=== PATIENT | male | born 1980 | race Caucasian/White ===

== ENCOUNTER 2016-07-06 10:08 | Emergency (ER) | payer OTHER ==
[2016-07-06 10:20] VITALS: BP 134/79
[2016-07-06] MEDS ORDERED: Ketorolac INJ* 60 MG/2 ML VIAL IM ONE (10:47)
--- NOTE | 2016-07-06 11:09 | ED ---
Back Pain - HPI Summary HPI Summary: 35 y/o male presents to the urgents care c/o lower back pain for the past 4 days whil;e he was squatting down to pick ferns. He states a shooting pain went down his left leg. Patient reports he has been taking Flexeril and Naproxen to aleviate symptoms, but the pain persist. Pain today is 8/10. He denies Hx of back pain, or urinary symptoms. He also denies N/V or saddle anesthesia. Patient denies numbness or tingling over lower extremities.. - History of Current Complaint Chief Complaint: UCBackPain Stated Complaint: BACK PAIN Time Seen by Provider: 07/06/16 10:21 Hx Obtained From: Patient Onset/Duration: Sudden Onset, Lasting Days, Still Present Onset/Duration: Started Days Ago Back Pain Location: Radiates To - to the left leg Pain Intensity: 8 Pain Scale Used: 0-10 Numeric Character: Spasmodic Aggravating Symptom(s): Movement, Lifting, Bending Associated Signs And Symptoms: Positive: Pain with Weight Bearing. Negative: Fever, Weakness, Numbness, Tingling, Flank Pain - Risk Factors TAD Risk Factors: Negative Cauda Equina Risk Factors: Negative - Allergies/Home Medications Allergies/Adverse Reactions: Allergies Allergy/AdvReac Type Severity Reaction Status Date / Time Sulfites Allergy "Throbbing Verified 07/06/16 10:20 down my whole right side." PMH/Surg Hx/FS Hx/Imm Hx Endocrine/Hematology History: Denies: Hx Anticoagulant Therapy, Hx Diabetes, Hx Thyroid Disease Cardiovascular History: Denies: Hx Congestive Heart Failure, Hx Deep Vein Thrombosis, Hx Hypertension , Hx Myocardial Infarction, Hx Pacemaker/ICD Respiratory History: Denies: Hx Asthma, Hx Chronic Obstructive Pulmonary Disease (COPD), Hx Lung Cancer, Hx Pneumonia, Hx Pulmonary Embolism GI History: Denies: Hx Gall Bladder Disease, Hx Gastrointestinal Bleed, Hx Ulcer, Hx Urosepsis History: Denies: Hx Kidney Stones, Hx Renal Disease Neurological History: Denies: Hx Dementia, Hx Migraine, Hx Seizures, Hx Transient Ischemic Attacks (TIA) Infectious Disease History: No Infectious Disease History: Denies: Traveled Outside the [place] in Last 30 Days - Family History Known Family History: Positive: None Negative: Hypertension, Diabetes - Social History Occupation: Employed Full-time - [employer] contractor Alcohol Use: Occasionally Substance Use Type: Reports: None Smoking Status (MU): Heavy Every Day Tobacco Smoker Type: Cigarettes Amount Used/How Often: 1/4 - 1/2 PPD Have You Smoked in the Last Year: Yes Cessation Counseling: Patient Advised to Stop Review of Systems Constitutional: Negative Negative: Fever Eyes: Negative ENT: Negative Cardiovascular: Negative Respiratory: Negative Gastrointestinal: Negative Negative: Abdominal Pain, Vomiting, Diarrhea, Nausea Genitourinary: Negative Negative: burning, dysuria Positive: Other - Positive lower back pain radiating to the left side Skin: Negative Neurological: Negative Psychological: Normal All Other Systems Reviewed And Are Negative: Yes Physical Exam Triage Information Reviewed: Yes Vital Signs On Initial Exam: Initial Vitals Temp Pulse Resp BP Pulse Ox 97.9 F 84 18 134/79 99 07/06/16 10:14 07/06/16 10:14 07/06/16 10:14 07/06/16 10:14 07/06/16 10:14 Vital Signs Reviewed: Yes Appearance: Positive: Well-Appearing, No Pain Distress, Well-Nourished Skin: Positive: Warm, Dry Head/Face: Positive: Normal Head/Face Inspection ENT: Positive: Pharynx normal. Negative: Pharyngeal erythema, Nasal congestion Neck: Positive: Nontender Respiratory/Lung Sounds: Positive: Clear to Auscultation, Breath Sounds Present Cardiovascular: Positive: Normal, RRR, S1, S2 Abdomen Description: Positive: Nontender, No Organomegaly. Negative: CVA Tenderness (R), CVA Tenderness (L) Bowel Sounds: Positive: Present Musculoskeletal: Positive: Strength/ROM Intact - positive decrease flexion and extension of lower back, Other - Negative leg raise test. Negative paresthesias over the lower extremities. Positive pulses and sensation wih good capillary refill. No tenderness on deep palpation over the paraspinal muscles at the lower back. Neurological: Positive: Normal Psychiatric: Positive: Normal - Henry Coma Scale Glascow Coma Scale Comments: 15 Diagnostics - Vital Signs Vital Signs Temp Pulse Resp BP Pulse Ox 07/06/16 10:14 97.9 F 84 18 134/79 99 - Laboratory Lab Statement: Any lab studies that have been ordered have been reviewed, and results considered in the medical decision making process. Back Pain Course/Dx - Diagnoses Differential Diagnosis/HQI/PQRI: Positive: Cauda Equina Syndrome, Fracture, Renal Colic, Strain, Sprain Provider Diagnoses: Lower back pain Discharge - Discharge Plan Condition: Stable Disposition: HOME Prescriptions: HYDROcodone/ACETAMIN 5-325 MG* [[place] 5-325 TAB*] 1 tab PO Q8H PRN #9 tab MDD 4 tabs PRN Reason: Pain Patient Education Materials: Acute Low Back Pain (ED) Referrals: [facility] [place] [facility] [Outside] No Primary Care Phys,NOPCP [Primary Care Provider] - Additional Instructions: Take madications as indicated and advised to follow up with PCP to call up and set up for an appt. Please acquire a back support which will help you for activities.
== END 2016-07-06 11:19 | disposition home or self-care (01) ==
LOC: UCCORT 10:08
DX: M54.5 Low back pain (principal); F17.210 Nicotine dependence, cigarettes, uncomplicated
CPT/HCPCS: 96372; 99212; G0463; J1885

== ENCOUNTER 2018-03-25 08:00 | Emergency (ER) | payer OTHER ==
[2018-03-25 08:27] VITALS: BP 123/86
--- NOTE | 2018-03-25 08:37 | UC ---
UC General HPI - HPI Summary HPI Summary: 2-3 day hx with pt c/o fatigue, bodyaches and subjective fever and chills. no thirsty as well. 2 coworkers have the flu. no hx DM. - History of Current Complaint Chief Complaint: UCGeneralIllness Stated Complaint: FATIGUE Time Seen by Provider: 03/25/18 08:25 Hx Obtained From: Patient Timing: Constant Pain Intensity: 0 Associated Signs & Symptoms: Positive: Fever. Negative: Abdominal Pain, Cough, Diarrhea, Dysuria, SOB, Vomiting - Allergy/Home Medications Allergies/Adverse Reactions: Allergies Allergy/AdvReac Type Severity Reaction Status Date / Time sulfite Allergy Right Body Verified 03/25/18 08:24 Throbbing Pain Home Medications: Home Medications NK [No Home Medications Reported] 03/25/18 [History Confirmed 03/25/18] PMH/Surg Hx/FS Hx/Imm Hx Previously Healthy: Yes Other History Of: Negative For: HIV, Hepatitis B, Hepatitis C, Anticoagulant Therapy - Surgical History Surgical History: None - Family History Known Family History: Positive: None Negative: Hypertension, Diabetes - Social History Occupation: Employed Full-time Alcohol Use: Weekly Substance Use Type: None Smoking Status (MU): Heavy Every Day Tobacco Smoker Type: Cigarettes Amount Used/How Often: 1/2 PPD Length of Time of Smoking/Using Tobacco: Since Age 15 Have You Smoked in the Last Year: Yes Household Exposure Type: Cigarettes - Immunization History Vaccination Up to Date: Yes Review of Systems All Other Systems Reviewed And Are Negative: Yes Constitutional: Positive: Fever, Chills, Fatigue Skin: Positive: Negative Eyes: Positive: Negative ENT: Positive: Negative Respiratory: Positive: Negative Cardiovascular: Positive: Negative Gastrointestinal: Positive: Negative Genitourinary: Positive: Negative Motor: Positive: Negative Neurovascular: Positive: Negative Musculoskeletal: Positive: Myalgia Neurological: Positive: Negative Psychological: Positive: Negative Is Patient Immunocompromised?: No Physical Exam Triage Information Reviewed: Yes Appearance: Well-Appearing Vital Signs: Initial Vital Signs Temp 98.3 F 03/25/18 08:24 Pulse 79 03/25/18 08:24 Resp 18 03/25/18 08:24 BP 123/86 03/25/18 08:24 Pulse Ox 100 03/25/18 08:24 Vital Signs Reviewed: Yes Eyes: Positive: Conjunctiva Clear ENT: Positive: Pharynx normal, TMs normal. Negative: Nasal congestion, Nasal drainage Neck: Positive: Supple, Nontender, No Lymphadenopathy Respiratory: Positive: Lungs clear, Normal breath sounds, No respiratory distress Cardiovascular: Positive: RRR, No Murmur Abdomen Description: Positive: Nontender, No Organomegaly, Soft Bowel Sounds: Positive: Present Musculoskeletal: Positive: ROM Intact Neurological: Positive: Alert Psychological: Positive: Age Appropriate Behavior Skin Exam: Normal Skin: Negative: Rashes Diagnostics - Laboratory Diagnostic Studies Completed/Ordered: u/a=trace blood only, no glucose. Rapid flu=neg. Course/Dx - Course Course Of Treatment: no indication for antibiotics - Differential Dx - Multi-Symptom Differential Diagnoses: Other - viral syndrom/influeza, hyperglucemia. doubt anemia or throid disorder. - Diagnoses Provider Diagnosis: Viral syndrome Discharge - Sign-Out/Discharge Documenting (check all that apply): Patient Departure All imaging exams completed and their final reports reviewed: No Studies - Discharge Plan Condition: Stable Disposition: HOME Patient Education Materials: Viral Syndrome (ED) Forms: *Work Release Referrals: Eloy Wolfe MD [Primary Care Provider] - 5 Days Additional Instructions: FOLLOW UP PCP IF NOT BETTER IN 5 DAYS OR SOONER IF WORSE. - Billing Disposition and Condition Condition: STABLE Disposition: Home
[2018-03-25 08:45] LABS: Influenza A Molecular NEGATIVE (Negative); Influenza B Molecular NEGATIVE (Negative)
== END 2018-03-25 08:53 | disposition home or self-care (01) ==
LOC: UCCORT 08:00
DX: B34.9 Viral infection, unspecified (principal); R53.83 Other fatigue; M79.10 Myalgia, unspecified site; F17.210 Nicotine dependence, cigarettes, uncomplicated; Z91.09 Other allergy status, other than to drugs and biological substances
CPT/HCPCS: 81003; 99211; G0463

== ENCOUNTER 2018-11-04 11:18 | Emergency (ER) | payer OTHER ==
[2018-11-04 12:19] VITALS: BP 116/80
--- NOTE | 2018-11-04 12:22 | UC ---
Respiratory Complaint HPI - HPI Summary HPI Summary: 38-year-old male who states that he's had fever, chills and productive cough over the weekend. 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 - History of Current Complaint Chief Complaint: UCRespiratory Stated Complaint: COUGH,CHEST CONGESTION Time Seen by Provider: 11/04/18 12:21 Hx Obtained From: Patient Onset/Duration: Gradual Onset Timing: Intermittent Episodes Severity Initially: Mild Severity Currently: Mild Pain Intensity: 7 Character: Cough: Productive - Patient states he also feels like his chest is burning when he coughs. He denies any chest pressure and no radiation of any pain and denies chest pain. Aggravating Factors: Other - Patient has been using lathe and plaster over the past month, without using protective masks. Alleviating Factors: Nothing Associated Signs And Symptoms: Positive: Fever, Chills - Allergies/Home Medications Allergies/Adverse Reactions: Allergies Allergy/AdvReac Type Severity Reaction Status Date / Time sulfite Allergy Right Body Verified 11/04/18 12:20 Throbbing Pain Home Medications: Home Medications Acetaminophen [Acetaminophen Extra Strength] 1,000 mg PO Q4H PRN 11/04/18 [ History Confirmed 11/04/18] Ibuprofen TAB* [Advil TAB*] 600 mg PO Q6H PRN 11/04/18 [History Confirmed ] PMH/Surg Hx/FS Hx/Imm Hx Previously Healthy: Yes Other History Of: Negative For: HIV, Hepatitis B, Hepatitis C, Anticoagulant Therapy - Surgical History Surgical History: None - Family History Known Family History: Positive: None Negative: Hypertension, Diabetes - Social History Occupation: Employed Full-time Alcohol Use: Weekly Substance Use Type: None Smoking Status (MU): Heavy Every Day Tobacco Smoker Type: eCigarettes, Smokeless Tobacco Amount Used/How Often: vapes with juule daily and uses chew daily Length of Time of Smoking/Using Tobacco: Since Age 15 Have You Smoked in the Last Year: Yes When Did the Patient Quit Smoking/Using Tobacco: quit smoking cigarettes 2018 and switched to vaping and chew Household Exposure Type: Cigarettes - Immunization History Vaccination Up to Date: Yes Review of Systems All Other Systems Reviewed And Are Negative: Yes Constitutional: Positive: Fever, Chills - Patient states fever and chills over the weekend. Respiratory: Positive: Cough - Productive cough Is Patient Immunocompromised?: No Physical Exam Triage Information Reviewed: Yes Appearance: Well-Appearing, No Pain Distress, Well-Nourished Vital Signs: Initial Vital Signs Temp 97.5 F 11/04/18 12:11 Pulse 74 11/04/18 12:11 Resp 16 11/04/18 12:11 BP 116/80 11/04/18 12:11 Pulse Ox 100 11/04/18 12:11 Vital Signs Reviewed: Yes Eyes: Positive: Conjunctiva Clear ENT: Positive: Hearing grossly normal, Pharynx normal, TMs normal, Uvula midline Neck: Positive: Supple, Nontender, No Lymphadenopathy Respiratory: Positive: Lungs clear, Normal breath sounds, No respiratory distress, No accessory muscle use Cardiovascular: Positive: RRR, No Murmur, Pulses Normal, Brisk Capillary Refill Musculoskeletal Exam: Normal Neurological Exam: Normal Psychological Exam: Normal Skin Exam: Normal Respiratory Course/Dx - Course Course Of Treatment: I feel this is a viral upper respiratory illness however because the patient had some exposure to left and plaster over the past month without using protective masks I preferred to do a chest x-ray. The patient did not want to wait for chest x-ray and said he would like amoxicillin or Z-Gilson and leave. I explained to him I don't feel this is bacterial and that is more viral but because of his exposure to the left and plaster wanted to do the chest x-ray. The patient refused a chest x-ray and left. - Differential Dx/Diagnosis Provider Diagnosis: URI (upper respiratory infection) Discharge ED - Sign-Out/Discharge Documenting (check all that apply): Patient Departure All imaging exams completed and their final reports reviewed: No Studies - Discharge Plan Condition: Good Disposition: AGAINST MEDICAL ADVICE Referrals: Eloy Wolfe MD [Primary Care Provider] - - Billing Disposition and Condition Condition: GOOD Disposition: Against Medical Advice - Attestation Statements Provider Attestation: Per institutional requirements, I have reviewed the chart, however, I was not consulted specifically or made aware of this patient by the midlevel provider. I did not personally evaluate, interact with , or disposition this patient.
== END 2018-11-04 12:40 | disposition left against medical advice (07) ==
LOC: UCCORT 11:18
DX: J06.9 Acute upper respiratory infection, unspecified (principal); Z53.20 Procedure and treatment not carried out because of patient's decision for unspecified reasons; F17.290 Nicotine dependence, other tobacco product, uncomplicated; F17.220 Nicotine dependence, chewing tobacco, uncomplicated
CPT/HCPCS: 99212; G0463